=== PATIENT | female | born 1975 | race Caucasian/White ===

== ENCOUNTER 2016-10-20 06:00 | Day surgery (SDC) | payer BC ==
[2016-10-15 15:24] VITALS: BMI 34.9
[2016-10-20] MEDS ORDERED: PHENAZOPYRIDINE HCL 100 MG TABLET (FP) PO ONE (06:38)
[2016-10-20] MEDS ORDERED: ACETAMINOPHEN 325 MG TABLET (FP) PO PRN (07:36)
[2016-10-20] MEDS ORDERED: IBUPROFEN 800 MG/8 ML IJ IVPB PRN ×2 (07:36→11:55)
[2016-10-20] MEDS ORDERED: IBUPROFEN 600 MG TABLET (FP) PO PRN (07:36)
[2016-10-20] MEDS ORDERED: ONDANSETRON 4 MG/2 ML VIAL IVPUSH PRN (07:38)
[2016-10-20] MEDS ORDERED: ROCURONIUM BROMIDE 50 MG/5 ML VIAL ONE (07:45)
[2016-10-20] MEDS ORDERED: LACTATED RINGERS SOLUTION 1,000 ML IV SCH (07:45)
[2016-10-20] MEDS ORDERED: PROPOFOL 20 ML ONE (07:45)
[2016-10-20] MEDS ORDERED: MIDAZOLAM HCL 2 MG/2 ML SINGLE DOSE VIAL ONE (07:45)
--- NOTE | 2016-10-20 07:47 | HP ---
History & Physical Update - History History: No Change - Physical Physical: No Change - Assessment Assessment: No Change - Plan Plan: No Change
[2016-10-20] MEDS ORDERED: ceFAZolin SODIUM 1 GM VIAL IVPB ONE (08:25)
[2016-10-20] MEDS ORDERED: ceFAZolin SODIUM 1 GM VIAL ONE (08:27)
[2016-10-20] MEDS ORDERED: HYDROmorphone HCL/PF 1 MG/ML VIAL (FOR PYXIS CHARGING ONLY) ONE ×3 (08:42→09:24)
[2016-10-20] MEDS ORDERED: DEXAMETHASONE SOD PHOSPHATE 4 MG/1 ML VIAL ONE ×2 (08:43→10:51)
[2016-10-20] MEDS: BUPIVACAINE HCL/PF 0.5% (5MG/ML) 10 ML VIAL ONE ×2 (10:58)
[2016-10-20] MEDS: HYDROmorphone HCL CARPU-JECT 1 MG/1 ML DISP.SYRIN IVPUSH PRN ×4 (11:32→13:45)
--- NOTE | 2016-10-20 11:53 | OP ---
Operative Note - Note: Operative Date: 10/20/16 Pre-Operative Diagnosis: Dysmenorrhea/pelvic pain refractory of conservative therapy Operation: Robotic Assisted TLH Findings: absent b/l fallopian tubes normal b/l ovaries adhesions from bladder to anterior uterus/cervix during cystoscopy bilateral ureteral jets were appreciated Post-Operative Diagnosis: Same as Pre-op Surgeon: Zaida Mello Knitting Tester: Oneida Alvarado Anesthesiologist/ROUND UP RING HAND: Nato Miranda Anesthesia: General Specimens Removed: uterus, cervix Estimated Blood Loss (mls): 250 Operative Report Dictated: Yes
[2016-10-20] MEDS ORDERED: HYDROmorphone HCL CARPU-JECT 1 MG/1 ML DISP.SYRIN IVPB PRN (11:54)
[2016-10-20] MEDS ORDERED: oxyCODONE HCL 5 MG TABLET PO PRN ×2 (11:56→11:57)
[2016-10-20] MEDS: LACTATED RINGERS SOLUTION 1,000 ML IV SCH ×2 (12:05→18:41)
--- NOTE | 2016-10-20 13:26 | OP ---
DATE OF OPERATION: 10/20/2016 PREOPERATIVE DIAGNOSIS: Pelvic pain and dysmenorrhea refractory to conservative therapy. POSTOPERATIVE DIAGNOSIS: Pelvic pain and dysmenorrhea refractory to conservative therapy. PROCEDURE: Robotic-assisted total laparoscopic hysterectomy and cystoscopy. SURGEON: Zaida Mello DO SENIOR [employer] NET DEVELOPER: Oneida Alvarado MD ESTIMATED BLOOD LOSS: 250 mL. SPECIMENS: Included uterus and cervix. FINDINGS: Included adhesions from the bladder to the anterior uterine surface as well as to the cervix and absent bilateral fallopian tubes. During cystoscopy, bilateral urethral jets were appreciated. Sponge, needle, and instrument count correct at the end of the case. DISPOSITION: Stable to PACU. BRIEF HISTORY AND PROCEDURE: The patient is a 41-year-old female who had been seen in the office after having a section and tubal ligation with complaints of cyclic pelvic pain and dysmenorrhea. The patient had tried hormonal and conservative medical therapies and had expressed desire for definitive management. The patient had consented for a robotic-assisted total laparoscopic hysterectomy in the office. Consents were reconfirmed upon admission on October 20, 2016. DESCRIPTION OF PROCEDURE: The patient was taken to the operating room and given general anesthesia by Dr. Nato Miranda and placed in the dorsal lithotomy position. A Diaz catheter was placed under sterile conditions, and the uterine manipulator was inserted as well. Next, a hard time-out was performed. An 8-mm skin incision was created in the umbilicus. The Veress needle was inserted into the abdomen. The abdomen was insufflated with CO2 gas and then trocar was then inserted. The camera was placed inside the 8-mm trocar. After confirmation of intra-abdominal placement, the remaining trocars were placed under direct visualization, 5 in total. Next, the robot was docked. The instruments were inserted under direct visualization. Attention was then first turned to the left utero-ovarian ligament, which was clamped, ligated, and cut with the vessel sealer device. Next, the left round ligament was clamped, ligated, and cut with the vessel sealer device, and the anterior bladder flap on the left side was initiated. This was completed through to the midline. Next, the left uterine arteries were clamped, cut, and ligated in several bites down to the level of the uterosacral ligaments. On the right side , the utero-ovarian ligament was identified, clamped, ligated, and cut with a vessel sealer device, and the right round ligament was clamped, ligated, and cut with a vessel sealer device, and the bladder flap on the right side was initiated and met in the midline with a prior bladder incision. Due to dense adhesions, the bladder was carefully dissected off its attachment to the anterior uterus and the cervix during the bladder flap dissection. During this time, the bladder was backfilled with approximately 300 mL of sterile saline solution to ensure no bladder injury and to better delineate the plane between the bladder and the cervix. The bladder was then emptied at this time. After being sure that both uterine arteries bilaterally were clamped, cut, and ligated to the level of the uterosacral ligaments, the anterior colpotomy was created and carried in a 360-degree fashion until the uterus was detached from the cervicovaginal junction. The uterus was then removed from the vagina at this time, and the vaginal cuff was reapproximated using 0 V- Lock suture in a running fashion. Excellent hemostasis was achieved at the end of the case. Bilateral ureters were inspected and noted to be within normal caliber and peristalsing. The bladder was noted to be intact. Methylene blue had been injected approximately 40 minutes earlier. No Methylene blue dye was noted to be leaking into the abdominal cavity at this time. The abdomen was then desufflated. All instruments and needles were removed from the abdomen. Counts were correct. The skin was reapproximated using 4-0 Biosyn and Dermabond. Next, a cystoscopy was performed. The bladder appeared to be intact with no evidence of trauma. Bilateral urethral jets were noted during cystoscopy. The bladder was then emptied. The Diaz catheter was replaced. The patient was awoken from anesthesia and taken to PACU in stable condition. Sponge needle and instrument counts were reported correct at the end of the case. ZAIDA MELLO DO /[id number] MTDD
[2016-10-20] MEDS ORDERED: ONDANSETRON 4 MG/2 ML VIAL ONE (18:25)
[2016-10-20] MEDS ORDERED: ONDANSETRON 4 MG/2 ML VIAL IVPB PRN (18:33)
[2016-10-21] MEDS: LACTATED RINGERS SOLUTION 1,000 ML IV SCH (05:54)
[2016-10-21 06:27] VITALS: BP 130/79; PULSE 108; TEMP 98
[2016-10-21 07:02] LABS: BASOPHIL 0.2 % (0-2.0); EOSINOPHIL 0.3 % (0-4.5); MCH 29.4 pg (25.7-33.7); MEAN CELL VOLUME 88.8 fl (80-96); MEAN PLT VOLUME 8.8 fl (7.5-11.1); NEUTROPHILS 79.7 % (42.8-82.8); PLATELET COUNT 222 K/MM3 (134-434); RDW 13.8 % (11.6-15.6); WHITE BLOOD COUNT 19.5 K/mm3 (4.0-10.0)
[2016-10-21] MEDS ORDERED: IBUPROFEN 600 MG TABLET (FP) PO PRN (07:36)
--- NOTE | 2016-10-21 08:57 | PN ---
Progress Note (short form) - Note Progress Note: Anesthesiology Post-op POD#1 s/p Robotic Hysterectomy under GA. Pt. is sitting up, eating breakfast. She states that she feels very well this morning, pain is well-managed, nausea is much improved. No apparent anesthesia-related issues. VSS.
--- NOTE | 2016-10-21 09:44 | PN ---
Progress Note, Physician Chief Complaint: Pt seen/examined and doing well. Pain controlled this a.m. on PO oxycodone and motrin. Tolerating regular diet and ambulating. Voiding, passing flatus. Denies n/v this a.m. Denies CP/SOB/F/C/HIRSCH. - Current Medication List Current Medications: Active Medications Acetaminophen (Tylenol -) 650 mg PO Q4H PRN PRN Reason: FEVER OR PAIN Enoxaparin Sodium (Lovenox -) 40 mg SQ DAILY PALMER Ibuprofen (Motrin -) 600 mg PO Q6H PRN PRN Reason: FEVER Ondansetron HCl (Zofran Injection) 8 mg IVPB Q8H PRN PRN Reason: NAUSEA Last Admin: 10/20/16 18:41 Dose: 8 mg Oxycodone HCl (Roxicodone -) 10 mg PO Q4H PRN PRN Reason: PAIN LEVEL 6-10 Last Admin: 10/20/16 22:02 Dose: 10 mg Oxycodone HCl (Roxicodone -) 5 mg PO Q4H PRN PRN Reason: PAIN - Objective Vital Signs: Vital Signs Temperature 98.0 F 10/21/16 06:25 Pulse Rate 108 H 10/21/16 06:25 Respiratory Rate 20 10/21/16 06:25 Blood Pressure 130/79 10/21/16 06:25 O2 Sat by Pulse Oximetry (%) 97 10/20/16 21:00 Constitutional: Yes: Well Nourished, No Distress, Calm Eyes: Yes: Conjunctiva Clear, EOM Intact HENT: Yes: Atraumatic, Normocephalic Neck: Yes: Supple, Trachea Midline Cardiovascular: Yes: Regular Rate and Rhythm Respiratory: Yes: Regular, CTA Bilaterally Gastrointestinal: Yes: Normal Bowel Sounds, Soft Integumentary: Yes: WNL Wound/Incision: Yes: Clean/Dry, Well Approximated Neurological: Yes: Alert, Oriented ...Motor Strength: WNL Psychiatric: Yes: Alert, Oriented Labs: CBC, BMP 10/21/16 06:00 Problem List - Problems (1) History of robot-assisted laparoscopic hysterectomy Code(s): Z90.710 - ACQUIRED ABSENCE OF BOTH CERVIX AND UTERUS Assessment/Plan 41 y/o POD#1 s/p Robotic Assisted Laparoscopic Hysterectomy - AFVSS, mild tachycardia intermittenly overnight, may be due to pain - Leukocytosis - no focal signs of infection on examination. May be due to inflammation s/p surgery, afebrile, will monitor temperature - regular diet - d/c IV meds - encourage ambulation - ok for discharge home today
[2016-10-21] MEDS ORDERED: ENOXAPARIN NA (PORCINE) 40 MG/0.4 ML DISP.SYRIN SQ SCH (10:00)
--- NOTE | 2016-10-21 12:38 | PATH ---
Surgical Pathology Report Patient Name: DIRK VAZQUEZ [facility]. Rec. #: [id number] /Age/Gender: 1975 (Age: 41) / F Account: [id number] Location: [address] [place] [address]/[facility] Taken: 10/20/2016 Received: 10/20/2016 Reported: 10/21/2016 Physicians: Zaida Mello M.D. Specimen(s) Received UTERUS AND CERVIX Clinical History Dysmenorrhea, pelvic pain Final Diagnosis UTERUS AND CERVIX, HYSTERECTOMY: UTERUS AND CERVIX, 121 GRAMS, WITH SECRETORY ENDOMETRIUM, UNREMARKABLE MYOMETRIUM, AND CERVIX WITH CHRONIC INFLAMMATION. Electronically Signed Adonay Herrera M.D. Gross Description Received in formalin labeled "uterus and cervix," is a 121 g uterus with an attached cervix and no attached adnexa. The specimen measures 9.4 cm from superior to inferior, 5.7 cm from left to right and 4.0 cm from anterior to posterior. The serosa is rodriguez-pink and smooth. The attached cervix measures 3.0 cm in length and 3.0 cm in diameter. The ectocervix is rodriguez, smooth and glistening. The endocervix is unremarkable. The endometrial cavity measures 5 cm in length and 3 cm from cornu to cornu. The endometrium is hyperemic and averages 0.3 cm in thickness. The myometrium is rodriguez-pink and averages 2 cm in thickness. No intramural nodules are identified. Mortgage Loan Processor sections are submitted in 6 cassettes as follows: 1-anterior cervix; 2-posterior cervix; 4-3-[id number] endomyometrium; 2-7-yexjywffn endomyometrium. /10/20/2016 [facility]/10/20/2016
== END 2016-10-21 13:10 | disposition home or self-care (01) ==
LOC: JASUSAT 06:00 → J6S 15:25 → JASUSAT 10-21 13:10
PROVIDERS: ATTEND Obstetrics & Gynecology
PROC: 0UTC7ZZ Resection of Cervix, Via Natural or Artificial Opening (ICD-10-PCS; 2016-10-20)
PROC: 8E0W4CZ Robotic Assisted Procedure of Trunk Region, Percutaneous Endoscopic Approach (ICD-10-PCS; 2016-10-20)
PROC: 0UT9FZZ Resection of Uterus, Via Natural or Artificial Opening With Percutaneous Endoscopic Assistance (ICD-10-PCS; principal; 2016-10-20 07:30)
DX: N94.6 Dysmenorrhea, unspecified (principal); R10.2 Pelvic and perineal pain
CPT/HCPCS: 58550; S2900; 36415; 84703; 85025; 88307-TC; 94010; 94760